=== PATIENT | female | born 1970 | race Caucasian/White ===

== ENCOUNTER 2017-01-04 05:43 | Day surgery (SDC) | payer BC ==
[2017-01-03 14:39] VITALS: BMI 23.8
[2017-01-04] VITALS (11 sets, daily range): BP systolic 99–110; BP diastolic 47–72; PULSE 70–94; RESP 12–20; Ht 157.5 cm; Wt 61.1 kg
[~2017-01-04] VITALS: Ht 157.5 cm; Wt 61.1 kg
[2017-01-04] MEDS ORDERED: LACTATED RINGER'S 1,000 ML IV* SCH (06:00)
[2017-01-04] MEDS ORDERED: FENTAnyl 50 MCG/ML VIAL ONE (06:42)
[2017-01-04] MEDS ORDERED: MIDAZOLAM 1 MG/ML 2 ML INJ ONE (06:42)
[2017-01-04] MEDS ORDERED: NEOSTIGMINE 3 MG/3 ML SYRINGE ONE (06:42)
[2017-01-04] MEDS ORDERED: PROPOFOL 20 ML ONE (06:42)
[2017-01-04] MEDS ORDERED: ROCURONIUM 50 MG INJ ONE (06:42)
[2017-01-04] MEDS ORDERED: LIDOCAINE 2% (SDV) 5 ML INJ ONE (06:42)
[2017-01-04] MEDS ORDERED: ONDANSETRON 4 MG INJ ONE (06:42)
[2017-01-04] MEDS ORDERED: GLYCOPYRROLATE 0.4 MG INJ ONE (06:42)
[2017-01-04] MEDS ORDERED: DEXAMETHASONE 4 MG/ML 1 ML INJ ONE (06:43)
[2017-01-04] MEDS ORDERED: SUGAMMADEX SODIUM 200 MG/2 ML VIAL IV ONE (06:49)
[2017-01-04] MEDS ORDERED: MEPERIDINE 25 MG INJ IV PRN (07:00)
[2017-01-04] MEDS ORDERED: hydrALAzine 20 MG INJ IV PRN (07:00)
[2017-01-04] MEDS ORDERED: FENTAnyl 50 MCG/ML VIAL IV PRN ×2 (07:00)
[2017-01-04] MEDS ORDERED: OXYCODONE/ACETAMINOPHEN (5/325) TAB PO PRN ×2 (07:00)
[2017-01-04] MEDS ORDERED: MIDAZOLAM 1 MG/ML 2 ML INJ IV PRN (07:00)
[2017-01-04] MEDS ORDERED: ONDANSETRON 4 MG INJ IV PRN (07:00)
[2017-01-04] MEDS ORDERED: morphine (1 MG/ML) 10ML SYRINGE IV PRN ×3 (07:00)
[2017-01-04] MEDS ORDERED: EPHEDrine SULFATE 50 MG/5 ML SYG IV PRN (07:00)
[2017-01-04] MEDS ORDERED: ATROPINE 1 MG/10 ML SYRINGE IV PRN (07:00)
[2017-01-04] MEDS ORDERED: HYDROmorphONE (0.2 MG/ML) 10ML SYG IV PRN ×3 (07:00)
[2017-01-04] MEDS ORDERED: DIPHENHYDRAMINE 50 MG INJ IV PRN (07:00)
[2017-01-04] MEDS ORDERED: LABETALOL HCL 20MG INJ IV PRN (07:00)
[2017-01-04] MEDS ORDERED: AMPH20TA2 PO (07:02)
[2017-01-04] MEDS ORDERED: CALC-392 PO (07:02)
[2017-01-04] MEDS ORDERED: CARI250T10 PO (07:02)
[2017-01-04] MEDS ORDERED: DIAZ10TA4 PO (07:02)
[2017-01-04] MEDS ORDERED: DIME240C2 PO (07:02)
[2017-01-04] MEDS ORDERED: CYAN100071 PO (07:02)
[2017-01-04] MEDS ORDERED: TOPI100C3 PO (07:02)
[2017-01-04] MEDS ORDERED: [UNRECOGNIZED DRUG - CODE] PO (07:02)
[2017-01-04] MEDS ORDERED: CLOB0.5P MC (07:02)
[2017-01-04] MEDS ORDERED: BUPR150T11 PO (07:02)
[2017-01-04] MEDS ORDERED: ALBU18HF INHALATION (07:06)
[2017-01-04] MEDS ORDERED: HYDR-3012 PO (07:06)
[2017-01-04] MEDS ORDERED: GABA300C16 PO (07:06)
[2017-01-04] MEDS ORDERED: BUPIVACAINE 0.5%/EPI (SDV) 30 ML INJ ONE (07:57)
--- NOTE | 2017-01-04 08:37 | HPN ---
Date/Time of Note Date/Time of Note DATE: 01/04/17 TIME: 08:37 BOSTON CHAUDHARI MD Jan 04, 2017 08:37
--- NOTE | 2017-01-04 08:37 | HPN ---
Date/Time of Note Date/Time of Note DATE: 01/04/17 TIME: 08:37 BOSTON CHAUDHARI MD Jan 04, 2017 08:37
--- NOTE | 2017-01-04 08:37 | HPN ---
Date/Time of Note Date/Time of Note DATE: 01/04/17 TIME: 08:37 BOSTON CHAUDHARI MD Jan 04, 2017 08:37
--- NOTE | 2017-01-04 08:41 | SIPON ---
Date/Time of Note Date/Time of Note DATE: 01/04/17 TIME: 08:38 Operative Report Preoperative Diagnosis sebaceous cyst on vulva Postoperative Diagnosis same see pathologic report Operation/Procedure Performed excisional biopsy of vulva cyst Surgeon see signature line blood bank assistant Yazan ([place]) Anesthesia: general Estimated blood loss: none Transfusion Required none Specimen vulva cyst Grafts/Implants none Complications none BOSTON CHAUDHARI MD Jan 04, 2017 08:41
--- NOTE | 2017-01-04 08:41 | SIPON ---
Date/Time of Note Date/Time of Note DATE: 01/04/17 TIME: 08:38 Operative Report Preoperative Diagnosis sebaceous cyst on vulva Postoperative Diagnosis same see pathologic report Operation/Procedure Performed excisional biopsy of vulva cyst Surgeon see signature line certified surgical tech/first assistant Yazan ([place]) Anesthesia: general Estimated blood loss: none Transfusion Required none Specimen vulva cyst Grafts/Implants none Complications none BOSTON CHAUDHARI MD Jan 04, 2017 08:41
--- NOTE | 2017-01-04 08:41 | SIPON ---
Date/Time of Note Date/Time of Note DATE: 01/04/17 TIME: 08:38 Operative Report Preoperative Diagnosis sebaceous cyst on vulva Postoperative Diagnosis same see pathologic report Operation/Procedure Performed excisional biopsy of vulva cyst Surgeon see signature line personalized living assistant Yazan ([place]) Anesthesia: general Estimated blood loss: none Transfusion Required none Specimen vulva cyst Grafts/Implants none Complications none BOSTON CHAUDHARI MD Jan 04, 2017 08:41
--- NOTE | 2017-01-04 08:42 | PD.PPDC ---
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
--- NOTE | 2017-01-04 08:42 | PD.PPDC ---
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
--- NOTE | 2017-01-04 08:42 | PD.PPDC ---
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
[2017-01-04] MEDS ORDERED: BUPIVACAINE 0.5%/EPI (SDV) 30 ML INJ INJ ONE (08:51)
--- NOTE | 2017-01-05 11:43 | OPR ---
DATE OF OPERATION: 01/04/2017 PREOPERATIVE DIAGNOSIS: Cyst on vulva. POSTOPERATIVE DIAGNOSIS: Sebaceous cyst. See pathological report. OPERATION PERFORMED: Excision of vulvar cyst. ANESTHESIA: General. ANESTHESIOLOGIST: Dr. Beauchamp. ESTIMATED BLOOD LOSS: Negligible. PROCEDURE: Under appropriate induction of general anesthesia, the patient was placed in the dorsal lithotomy position. Perineal area and vagina wall were prepped and draped in usual aseptic manner. On the right vulva, which is located next to peritoneum below the labia majora, which measures appr oximately 1.5 cm in longitudinal diameter and 0.5 cm in width. This was excised in elliptical fashi on and the whole cyst was removed. The sebaceous material was escaping from the cyst. The defect w as closed with 3-0 chromic catgut with a GI needle in continuous manner. No bleeding noted. A piec e of Xeroform gauze was placed on the surgical site. Procedure was completed. All the instruments were removed from the operative field. Sponge count correct. The patient was sent to recovery room in stable condition. Dictated By: MERON BREAUX/IGNACIA Conf#: [id number] DID#: [id number]
== END 2017-01-04 10:36 | disposition home or self-care (01) ==
LOC: SDS 05:43
PROVIDERS: ATTEND Obstetrics & Gynecology
DX: N90.7 Vulvar cyst (principal); D28.0 Benign neoplasm of vulva
CPT/HCPCS: 11421; 84703; 88304; J1100; J2250; J2405; J3010; Z7512; Z7610; J2710

== ENCOUNTER 2017-04-19 16:37 | Emergency (ER) | END 2017-04-19 16:45 | disposition left against medical advice (07) ==

== ENCOUNTER 2017-05-03 06:04 | Inpatient (IN) | END 2017-05-06 18:12 | disposition home or self-care (01) | DRG 742 ==